=== PATIENT | female | born 1980 | race American Indian/Alaskan Native ===

== ENCOUNTER 2017-11-12 09:48 | Emergency (ER) | payer OTHER ==
[2017-11-12 09:54] VITALS: BP 139/90
[2017-11-12] MEDS ORDERED: MOTRIN PO ONE (10:44)
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
== END 2017-11-12 13:18 | disposition home or self-care (01) ==
LOC: ED 09:48
DX: S93.401A Sprain of unspecified ligament of right ankle, initial encounter (principal); F17.200 Nicotine dependence, unspecified, uncomplicated; V49.09XA Driver injured in collision with other motor vehicles in nontraffic accident, initial encounter; Y93.89 Activity, other specified; Y99.8 Other external cause status; Y92.488 Other paved roadways as the place of occurrence of the external cause